=== PATIENT | female | born 1970 ===

== ENCOUNTER 2022-04-17 16:48 | Inpatient (IN) | payer OTHER ==
[~2022-04-17] VITALS: Ht 152.4 cm; Wt 93.0 kg
[2022-04-17] MEDS ORDERED: LISI10TA29 PO (17:20)
[2022-04-17] MEDS ORDERED: ASPI81TA31 PO (17:20)
[2022-04-17] MEDS ORDERED: IV NORMAL SALINE 1000 ML BAG IV ONE ×2 (17:45→19:00)
[2022-04-17] MEDS ORDERED: ACETAMINOPHEN ES 500 MG TABLET PO ONE (17:45)
[2022-04-17] MEDS ORDERED: ACETAMINOPHEN ES 500 MG TABLET ONE (17:52)
[2022-04-17 18:11] LABS: MEAN CORPUSCULAR HEMOGLOBIN 30.1 uug (24.7-32.8); MEAN CORPUSCULAR VOLUME 89.3 fL (75.5-95.3); PLATELET COUNT (AUTO) 278 K/uL (179-408)
--- NOTE | 2022-04-17 18:13 | NUR ---
PT IS IN ROOM #2A. DR LEAVITT EVALUATED THE PT.
[2022-04-17 18:27] LABS: ALANINE AMINOTRANSFERASE 19 U/L (14-59); ALKALINE PHOSPHATASE 56 U/L (50-136); ASPARTATE AMINOTRANSFERASE 30 U/L (15-37); BILIRUBIN,DIRECT 0.2 mg/dL (0.0-0.2); BILIRUBIN,TOTAL 0.5 mg/dL (0.2-1.0); CARBON DIOXIDE 28 mmol/L (21-32); CHLORIDE 95 mmol/L (98-107); CREATININE 0.8 mg/dL (0.6-1.3); GLUCOSE 117 mg/dL (74-106); POTASSIUM 4.4 mmol/L (3.5-5.1); TOTAL PROTEIN, SERUM 5.8 g/dL (6.4-8.2); UREA NITROGEN, BLOOD 12 mg/dL (7-18)
[2022-04-17] MEDS ORDERED: CEFTRIAXONE 1 G in IV DEXTROSE 5% 50 ML IV ONE (19:00)
[2022-04-17] MEDS ORDERED: VANCOMYCIN IV 1,000 MG in IV DEXTROSE 5% 250 ML IV ONE (19:00)
--- NOTE | 2022-04-17 19:04 | NUR ---
REPORT WAS GIVEN TO PYROMETER TEMPERATURE REGULATOREDITORIAL DIRECTOR.
[2022-04-17 19:05] LABS: THYROID STIMULATING HORMONE 1.906 mIU/mL (0.358-3.740)
[2022-04-17] MEDS ORDERED: KETOROLAC TROMETHAMINE 15 MG INJ IVP ONE (19:30)
[2022-04-17] MEDS ORDERED: IV NORMAL SALINE 250 ML IV ONE (20:46)
[2022-04-17] MEDS ORDERED: SWABABLE VALVE TRANSFER SET EA MC ONE (20:46)
[2022-04-17] MEDS ORDERED: IOHEXOL 300MG/ML 100 ML INFUS..BTL ONE (20:46)
[2022-04-18] MEDS ORDERED: ACETAMINOPHEN 325 MG TABLET PO PRN (00:15)
[2022-04-18] MEDS ORDERED: CEFTRIAXONE /D5W 50ML IVPB **ER PYXIS IV ONE (00:35)
[2022-04-18] MEDS ORDERED: KETOROLAC TROMETHAMINE 15 MG INJ ONE (00:35)
[2022-04-18] MEDS ORDERED: VANCOMYCIN IV 200 ML ONE (00:35)
[2022-04-18] MEDS ORDERED: methylPREDNISolone SOD SUCC 125 MG/2 ML VIAL IV ONE (01:30)
[2022-04-18] MEDS ORDERED: diphenhydrAMINE 50 MG/1 ML VIAL IV ONE (01:30)
[2022-04-18] MEDS ORDERED: diphenhydrAMINE 50 MG/1 ML VIAL ONE (01:53)
[2022-04-18] MEDS ORDERED: methylPREDNISolone SOD SUCC 125 MG/2 ML VIAL ONE (01:54)
[2022-04-18 03:40] VITALS: BP 110/48
[2022-04-18] MEDS ORDERED: levoFLOXacin 500 MG/D5W 500 MG in PREMIXED 1 EACH IV SCH (04:00)
[2022-04-18] MEDS ORDERED: IV 1/2NS 1000 ML 1,000 ML IV ONE (04:15)
[2022-04-18] MEDS ORDERED: levoFLOXacin 500 MG/D5W 100 ML ONE (04:51)
[2022-04-18] MEDS ORDERED: METRONIDAZOLE 500 MG/NS 100ML 100 ML IV ONE (04:52)
--- NOTE | 2022-04-18 05:29 | NUR ---
RECEIVED PATIENT ALERT AND ORIENTED X4 BUT GEORGIAN SPEAKING ACCOMPANIED BY DAUGHTER ASSISTED NURSE WITH HER REPORT. NO SIGNS OF RESPIRATORY DISTRESS NOTED. PT ASSESSED HAS RED BUMPS IN THE PERINEUM AREA UPPER AND LOWER BACK, ANTERIOR THIGH BUT NOT PT LEGS PT SHOWS NO SIGNS OF EDEMA. PT STATES" iT FEELS LIKE i AM BURNING ALL OVER BUT DENIES PAIN. PT WHOLE BUTTOCK AREA HAS RED BUMPS ALONG WITH BUTTOCKS AREA. PT HAS IV FLUIDS OF 1/2NS INFUSING AT 70 ML AND HOUR PATIENT TOLERATING WELL WITH 20 GAUGE LT AC. PT HAS ANTIBIOTIC OF LEVAQUIN 500MG ORDERED ALONG WITH FLAGYL 50MG VIA IVPB. PT IS ABLE TO TURN IN BED WILL CONTINUE TO MONITOR FOR SAFETY AND FALL. WILL ENDORSE TO AM NURSE.
[2022-04-18 05:59] VITALS: BP 110/44
[2022-04-18] MEDS: METRONIDAZOLE 500 MG/NS 100ML 500 MG in PREMIXED 1 EACH IV SCH ×3 (06:07→21:22)
[2022-04-18 07:19] LABS: HEMATOCRIT 32.5 % (31.2-41.9); MEAN CORPUSCULAR HEMOGLOBIN 30.3 uug (24.7-32.8); MEAN CORPUSCULAR VOLUME 89.6 fL (75.5-95.3); PLATELET COUNT (AUTO) 260 K/uL (179-408)
[2022-04-18 07:35] LABS: BILIRUBIN,TOTAL 0.4 mg/dL (0.2-1.0); CREATININE 0.7 mg/dL (0.6-1.3); PHOSPHOROUS 4.9 mg/dL (2.5-4.9); POTASSIUM 4.3 mmol/L (3.5-5.1); TOTAL PROTEIN, SERUM 5.6 g/dL (6.4-8.2)
[2022-04-18] MEDS: PANTOPRAZOLE SODIUM 40 MG TABLET.DR PO SCH (08:27)
[2022-04-18 10:20] LABS: *BILIRUBIN,URIN NEGATIVE (NEGATIVE); *BLOOD, URINE NEGATIVE (NEGATIVE); *CLARITY,URINE CLEAR (CLEAR); *COLOR,URINE YELLOW (YELLOW); *KETONES,URINE NEGATIVE (NEGATIVE); *UROBILINOGEN,URINE 0.2 E.U./dl (NORMAL); LEUKOCYTE ESTERASE ,URINE NEGATIVE (NEGATIVE); NITRITE, URINE NEGATIVE (NEGATIVE); UGLUCOSE TRACE (NEGATIVE)
[2022-04-18 10:22] LABS: *URINE HCG, QUAL NEGATIVE (NEGATIVE)
[2022-04-18 11:05] LABS: BACTERIA,URINE FEW /HPF (NONE SEEN); RBC,URINE 0-3 /HPF (0-3); SQUAMOUS EPITHELIAL CELL,UR FEW /HPF (NONE SEEN); WBC,URINE NONE SEEN /HPF (0-3)
[2022-04-18 11:11] VITALS: BP 115/47
[2022-04-18 15:27] VITALS: BP 130/54
--- NOTE | 2022-04-18 16:29 | NUR ---
Pt. has been stable through out the shift. Able to make the need known. No compliance of pain or discomfort noted. Alert and oriented x4. Able to ambulate. Urine was collected and was sent to the lab. Will keep monitoring the patient.
--- NOTE | 2022-04-18 19:30 | NUR ---
Patient was resting comfortably in bed with family by bedside. Concerns were communicated at this time and verbally understood. AAOx4, Syriac speaking. Is in no distress or c/o pain at this time. Is on RA. Left IV site is intact and patent, IVF running adequately. Safety and comfort measures enforced.
[2022-04-18 20:00] VITALS: BP 110/55
[2022-04-19] MEDS: MORPHINE SULFATE 2 MG/1 ML DISP.SYRIN IVP PRN ×2 (03:42→17:13)
[2022-04-19 04:00] VITALS: BP 103/55
[2022-04-19] MEDS: METRONIDAZOLE 500 MG/NS 100ML 500 MG in PREMIXED 1 EACH IV SCH ×3 (05:10→21:41)
[2022-04-19] MEDS: levoFLOXacin 500 MG/D5W 500 MG in PREMIXED 1 EACH IV SCH (06:14)
[2022-04-19 07:10] LABS: CREATININE 0.8 mg/dL (0.6-1.3); PHOSPHOROUS 3.9 mg/dL (2.5-4.9); POTASSIUM 3.8 mmol/L (3.5-5.1); URIC ACID 3.8 mg/dL (2.6-6.0)
[2022-04-19 07:17] LABS: THYROID STIMULATING HORMONE 2.042 mIU/mL (0.358-3.740)
[2022-04-19 09:08] LABS: IRON, SERUM 74 ug/dL (50-175)
[2022-04-19] MEDS: PANTOPRAZOLE SODIUM 40 MG TABLET.DR PO SCH (09:22)
[2022-04-19 11:03] VITALS: BP 105/46
[2022-04-19 15:18] VITALS: BP 97/46
--- NOTE | 2022-04-19 18:20 | NUR ---
Concerns were communicated with patient and family members. They are aware of situation and are less anxious about situation. Want to give them updates d/t language barrier from patient. No distress noted at this time. Pain was treated and goal was met. Safety and comfort measures maintained.
[2022-04-19 20:00] VITALS: BP 103/49
--- NOTE | 2022-04-20 01:41 | NUR ---
message left with exchange to call me back,about pt concern
--- NOTE | 2022-04-20 01:55 | NUR ---
INFORMED OF PT C/O OF SOB ,ORDERS OBTAINED
[2022-04-20] MEDS ORDERED: ALBUTEROL SULFATE 2.5 MG/3 ML NEBU NEB PRN (02:00)
[2022-04-20] MEDS ORDERED: IPRATROPIUM BROMIDE 0.5 MG/2.5 ML NEBU NEB PRN (02:00)
[2022-04-20 04:00] VITALS: BP 125/54
[2022-04-20] MEDS: METRONIDAZOLE 500 MG/NS 100ML 500 MG in PREMIXED 1 EACH IV SCH (05:20)
[2022-04-20] MEDS: levoFLOXacin 500 MG/D5W 500 MG in PREMIXED 1 EACH IV SCH (05:20)
--- NOTE | 2022-04-20 07:30 | NUR ---
REPORT GIVEN TO ALFA HURST
--- NOTE | 2022-04-20 07:30 | NUR ---
NIGHT REPORT: 1) SAFETY: (a)Patient has iv access LAC 20G - saline locked, however, on IV ATB. (b) No sign of infection, inflammation observed, site is patent, intact and flushing 2) BREATHING: No signs of SOB - ON RA - Saturating in the high 90s. 3) MOBILITY: Patient is fully mobile - no safety concerns observed or expressed. 4) SKIN:Intact, no rash or discoloration observed. 5) PAIN: No c/o of pain or non verbal sign of pain. 6) EATING & DRINKING: On clear fluids PLAN: (i) Continue to be on clear fluids. (ii) Await colonoscopy orders (iii) treat patient accordingly (iv) Patient want nebilizer instead of inhalers
[2022-04-20 08:00] VITALS: BP 110/68
[2022-04-20] MEDS ORDERED: IOHEXOL 300MG/ML 100 ML INFUS..BTL ONE (08:00)
[2022-04-20] MEDS ORDERED: SWABABLE VALVE TRANSFER SET EA MC ONE (08:00)
[2022-04-20] MEDS ORDERED: IV NORMAL SALINE 250 ML IV ONE (08:00)
[2022-04-20] MEDS: PROTEIN SUPPLEMENT (PROSTAT) 30 ML LIQUID PO SCH (08:00)
--- NOTE | 2022-04-20 08:00 | NUR ---
CT CHEST WITH CONTRAST: 1) Patient has left the unit for CT chest with contrast. 2) Check list completed - has had contrast before with no allergies 3) Belgian speaking - needed an machinist general.
--- NOTE | 2022-04-20 08:30 | NUR ---
FLACO cortez this morning - continue on clear fluids and await colonoscopy orders.
--- NOTE | 2022-04-20 08:40 | NUR ---
CT CHEST W/CONTRAST UPDATE: 1) Patient returned to the unit, clinically stable on return 2) MD on the unit and is aware of above.
[2022-04-20] MEDS: PANTOPRAZOLE SODIUM 40 MG TABLET.DR PO SCH (09:26)
[2022-04-20] MEDS: ONDANSETRON 4 MG/2 ML VIAL IV PRN (09:26)
--- NOTE | 2022-04-20 09:29 | NUR ---
AM MED: 1) C/o of nausea - Zofran administered iv as prescribed - awaiting effect 2) Returned Tylenol and Prostate due to above. 3) Will continue to treat and assess accordingly
[2022-04-20] MEDS ORDERED: ALBUTEROL SULFATE 8 GM HFA.AER.AD IH PRN (10:30)
[2022-04-20] MEDS: IPRATROPIUM BROMIDE 0.5 MG/2.5 ML NEBU NEB SCH ×5 (11:30→23:30)
[2022-04-20 11:46] VITALS: BP 112/56
[2022-04-20] MEDS ORDERED: ALBUTEROL SULFATE 1.25 MG/3 ML NEBU NEB PRN (13:00)
[2022-04-20] MEDS: METRONIDAZOLE 500 MG TABLET PO SCH ×2 (14:00→21:17)
--- NOTE | 2022-04-20 14:05 | NUR ---
Patient will be picked up for colonoscopy at 9:30am for 10 am, patient informed.
[2022-04-20 16:04] VITALS: BP 128/60
[2022-04-20] MEDS ORDERED: HYDROMORPHONE 1 MG/1 ML DISP.SYRIN IV PRN (16:30)
--- NOTE | 2022-04-20 17:30 | NUR ---
BOWEL PREP: 1) Patient started on Golyte 1 gallon at 6pm 2) To have 1 glass every 30 minutes until 6am. 3) NPO at midnight except for meds. 4) Patient on clear liquids until MN. 5) To have Sorbitol at 6am. 6) Consent signed - daughter interpreted.
[2022-04-20] MEDS: ACETAMINOPHEN 325 MG TABLET PO PRN (17:46)
[2022-04-20] MEDS ORDERED: GOLYTELY 4000 ML BOTTLE PO ONE ×2 (18:00)
--- NOTE | 2022-04-20 18:41 | NUR ---
1) No further complaints from patient for the rest of the day. 2) Will endorse care to night staff accordingly, who will continue care for the rest of the day.
[2022-04-20 20:00] VITALS: BP 126/63
[2022-04-21] MEDS: IPRATROPIUM BROMIDE 0.5 MG/2.5 ML NEBU NEB SCH ×6 (03:07→23:00)
[2022-04-21] MEDS ORDERED: SORBITOL 70% SOLUTION 30 ML UDC PO ONE ×3 (03:45→06:00)
[2022-04-21] MEDS: ACETAMINOPHEN 325 MG TABLET PO PRN ×2 (03:47→20:50)
[2022-04-21] MEDS: levoFLOXacin 500 MG/D5W 500 MG in PREMIXED 1 EACH IV SCH (05:17)
[2022-04-21] MEDS: METRONIDAZOLE 500 MG TABLET PO SCH ×3 (05:18→22:14)
[2022-04-21 06:30] LABS: HEMATOCRIT 32.3 % (31.2-41.9); MEAN CORPUSCULAR HEMOGLOBIN 30.3 uug (24.7-32.8); MEAN CORPUSCULAR VOLUME 90.1 fL (75.5-95.3); PLATELET COUNT (AUTO) 309 K/uL (179-408)
[2022-04-21 06:57] LABS: CREATININE 0.8 mg/dL (0.6-1.3); MAGNESIUM 1.8 mg/dL (1.8-2.4); PHOSPHOROUS 4.3 mg/dL (2.5-4.9); POTASSIUM 3.5 mmol/L (3.5-5.1)
[2022-04-21] MEDS: PROTEIN SUPPLEMENT (PROSTAT) 30 ML LIQUID PO SCH (08:00)
[2022-04-21] MEDS: PANTOPRAZOLE SODIUM 40 MG TABLET.DR PO SCH (08:04)
[2022-04-21] MEDS ORDERED: IOHEXOL 300MG/ML 100 ML INFUS..BTL ONE (08:35)
[2022-04-21] MEDS ORDERED: SWABABLE VALVE TRANSFER SET EA MC ONE (08:37)
[2022-04-21 10:13] LABS: *RHEUMATOID FACTOR SCREEN NEGATIVE (NEGATIVE)
[2022-04-21] MEDS ORDERED: LIDOCAINE-MPF 2% 5 ML VIAL IJ ONE (11:09)
[2022-04-21] MEDS ORDERED: PROPOFOL 200 MG/20 ML BOTTLE IV ONE (11:09)
[2022-04-21] MEDS ORDERED: FENTANYL CITRATE 100 MCG/2 ML AMPUL ONE (11:26)
[2022-04-21 12:54] VITALS: BP 106/51
[2022-04-21 13:06] LABS: *ANTI-SCLERODERMA-70 AB <0.2 AI (0.0-0.9); *SJOGREN'S ANTI-SS-A <0.2 AI (0.0-0.9); *SJOGREN'S ANTI-SS-B <0.2 AI (0.0-0.9); *SMITH ANTIBODIES <0.2 AI (0.0-0.9); ANTI-DNA(DS) AB, QN 5 IU/mL (0-9)
[2022-04-21 15:06] VITALS: BP 117/42
[2022-04-21 20:00] VITALS: BP 121/56
--- NOTE | 2022-04-21 20:00 | NUR ---
received pt A/A/OX4 ENTERTAINING WITH FAMILY MEMBERS. DENIES PAIN OR DISCOMFORT. V/S=STABLE. PT AMBULATES TO BR WITHOUT ANY PROBLEME. AT 2230 ==C/O ABOUT HEADAGHE , GIVENTYLENOL WITH EFFECT. 2340 ==SLEEPING AT THIS TIME .NO S/SX OF DISTRESS NOTICED.
[2022-04-22] MEDS: IPRATROPIUM BROMIDE 0.5 MG/2.5 ML NEBU NEB SCH ×6 (03:14→23:30)
[2022-04-22 04:00] VITALS: BP 129/62
[2022-04-22] MEDS: ACETAMINOPHEN 325 MG TABLET PO PRN (05:38)
[2022-04-22] MEDS: METRONIDAZOLE 500 MG TABLET PO SCH ×3 (06:28→21:51)
[2022-04-22] MEDS: levoFLOXacin 500 MG/D5W 500 MG in PREMIXED 1 EACH IV SCH (06:39)
[2022-04-22 07:07] LABS: *IMMUNOGLOBULIN G, SERUM 1299 mg/dL (586-1602); IMMUNOGLOBULIN M, SERUM 115 mg/dL (26-217)
[2022-04-22] MEDS: PROTEIN SUPPLEMENT (PROSTAT) 30 ML LIQUID PO SCH (08:20)
[2022-04-22] MEDS: PANTOPRAZOLE SODIUM 40 MG TABLET.DR PO SCH (08:51)
[2022-04-22 11:08] VITALS: BP 133/64
[2022-04-22] MEDS: FUROSEMIDE 40 MG TABLET PO SCH (12:46)
--- NOTE | 2022-04-22 13:31 | NUR ---
Lasix 40mg administered as per doctor's order. Doctor is aware of potassium level 3.5.
[2022-04-22] MEDS ORDERED: LISI-782 PO (13:34)
[2022-04-22] MEDS ORDERED: MONT10TA33 PO (13:34)
[2022-04-22] MEDS ORDERED: CARV6.252 PO (13:34)
[2022-04-22] MEDS ORDERED: ATOR40TA PO (13:35)
[2022-04-22] MEDS: ASPIRIN 81 MG TAB.CHEW PO SCH (14:10)
[2022-04-22 15:36] VITALS: BP 117/53
[2022-04-22] MEDS: CARVEDILOL 6.25 MG TABLET PO SCH (17:36)
[2022-04-22] MEDS: ONDANSETRON 4 MG/2 ML VIAL IV PRN (17:40)
[2022-04-22] MEDS: ATORVASTATIN 40 MG TABLET PO SCH (21:00)
[2022-04-22] MEDS: MONTELUKAST SODIUM 10 MG TABLET PO SCH (21:00)
[2022-04-23] MEDS: IPRATROPIUM BROMIDE 0.5 MG/2.5 ML NEBU NEB SCH ×6 (03:30→23:18)
[2022-04-23] MEDS: levoFLOXacin 500 MG TABLET PO SCH (06:33)
[2022-04-23] MEDS: METRONIDAZOLE 500 MG TABLET PO SCH ×3 (06:34→21:26)
[2022-04-23 08:03] LABS: IRON, SERUM 34 ug/dL (50-175)
[2022-04-23] MEDS: PROTEIN SUPPLEMENT (PROSTAT) 30 ML LIQUID PO SCH (09:06)
[2022-04-23] MEDS: FUROSEMIDE 40 MG TABLET PO SCH (09:06)
[2022-04-23] MEDS: PANTOPRAZOLE SODIUM 40 MG TABLET.DR PO SCH (09:06)
[2022-04-23] MEDS: ASPIRIN 81 MG TAB.CHEW PO SCH (09:06)
[2022-04-23] MEDS: LISINOPRIL 5 MG TABLET PO SCH (09:07)
[2022-04-23] MEDS: CARVEDILOL 6.25 MG TABLET PO SCH ×2 (09:08→17:29)
[2022-04-23 09:15] LABS: FERRITIN 248 ng/mL (8-252)
--- NOTE | 2022-04-23 11:00 | NUR ---
patient skin was inspected, noted with red color irregular shape rash spreaded over the body, however no fluid filled blisters noted.
[2022-04-23 11:47] VITALS: BP 115/61
[2022-04-23] MEDS: MORPHINE SULFATE 2 MG/1 ML DISP.SYRIN IVP PRN (15:10)
[2022-04-23] MEDS: ACETAMINOPHEN 325 MG TABLET PO PRN ×2 (15:21→23:55)
[2022-04-23 16:00] VITALS: BP 124/53
--- NOTE | 2022-04-23 19:20 | NUR ---
no events noted during shift Addendum: 04/24/22 at 1240 by MICAH ALANIS RN [id number] PATIENT IN BED, AWAKE, ALERT/OX4, PERSIAN SPEAKING WITH SOME ITALIAN, PATIENT VERBALIZES NEEDS AND FOLLOWS DIRECTIONS. ON R/A AND WELL YSABEL. NO PHYSICAL OR RESPIRATORY DISTRESS NOTED. HOB ELEVATED. LEFT HAND H/L g 20" FLUSHING WELL. REPOSITIONED PATIENT TO [id number] COMFORT AND FACILITATE PRESSURE RELIEF. ENCOURAGED ORAL FLUIDS ENCOURAGED AND TAKEN WELL. NO SWALLOWING PROBLEMS OBSERVED, NO S/S OF CHOCKING/COUGHING NOTED. CALL LIGHT WITHIN REACH AND ENCOURAGED TO PLEASE USE IT EVERY TIME HELP IS NEEDED WITH GOOD UNDERSTANDING..
[2022-04-23] MEDS: ATORVASTATIN 40 MG TABLET PO SCH (21:26)
[2022-04-23] MEDS: FERROUS SULFATE 325 MG TABEC PO SCH (21:26)
[2022-04-23] MEDS: MONTELUKAST SODIUM 10 MG TABLET PO SCH (21:26)
[2022-04-24] MEDS: IPRATROPIUM BROMIDE 0.5 MG/2.5 ML NEBU NEB SCH ×6 (03:30→23:30)
[2022-04-24] MEDS: METRONIDAZOLE 500 MG TABLET PO SCH ×3 (06:08→22:06)
[2022-04-24] MEDS: levoFLOXacin 500 MG TABLET PO SCH (06:08)
[2022-04-24 07:07] LABS: A/G RATIO 0.9 (0.7-1.7); ALBUMIN 2.8 g/dL (2.9-4.4); ALPHA-1-GLOBULIN 0.3 g/dL (0.0-0.4); ALPHA-2-GLOBULIN 0.7 g/dL (0.4-1.0); BETA GLOBULIN 0.8 g/dL (0.7-1.3); GAMMA GLOBULIN 1.3 g/dL (0.4-1.8); GLOBULIN, TOTAL 3.1 g/dL (2.2-3.9); M-SPIKE Not Observed g/dL (Not Observed)
[2022-04-24] MEDS: PROTEIN SUPPLEMENT (PROSTAT) 30 ML LIQUID PO SCH (08:38)
[2022-04-24] MEDS: PANTOPRAZOLE SODIUM 40 MG TABLET.DR PO SCH (08:39)
[2022-04-24] MEDS: LISINOPRIL 5 MG TABLET PO SCH ×2 (08:39→08:41)
[2022-04-24] MEDS: CARVEDILOL 6.25 MG TABLET PO SCH (08:40)
[2022-04-24] MEDS: ASPIRIN 81 MG TAB.CHEW PO SCH (08:40)
[2022-04-24] MEDS: FUROSEMIDE 40 MG TABLET PO SCH (08:40)
[2022-04-24] MEDS: FERROUS SULFATE 325 MG TABEC PO SCH ×2 (08:40→21:25)
[2022-04-24 11:16] LABS: *OCCULT BLOOD STOOL NEGATIVE (NEGATIVE)
[2022-04-24 11:32] VITALS: BP 105/56
[2022-04-24] MEDS: ACETAMINOPHEN 325 MG TABLET PO PRN ×2 (15:09→22:01)
[2022-04-24 15:42] VITALS: BP 122/41
[2022-04-24 20:22] VITALS: BP 97/52
[2022-04-24] MEDS: ATORVASTATIN 40 MG TABLET PO SCH (21:14)
[2022-04-24] MEDS: MONTELUKAST SODIUM 10 MG TABLET PO SCH (21:25)
[2022-04-25] MEDS: IPRATROPIUM BROMIDE 0.5 MG/2.5 ML NEBU NEB SCH ×6 (03:10→23:06)
[2022-04-25 04:00] VITALS: BP 99/43
[2022-04-25] MEDS: METRONIDAZOLE 500 MG TABLET PO SCH ×3 (06:06→21:24)
[2022-04-25] MEDS: levoFLOXacin 500 MG TABLET PO SCH (06:07)
[2022-04-25] MEDS: ONDANSETRON 4 MG/2 ML VIAL IV PRN (06:24)
[2022-04-25 08:00] VITALS: BP 97/44
[2022-04-25] MEDS: PROTEIN SUPPLEMENT (PROSTAT) 30 ML LIQUID PO SCH (08:00)
[2022-04-25] MEDS: LISINOPRIL 5 MG TABLET PO SCH (09:00)
[2022-04-25] MEDS: FUROSEMIDE 40 MG TABLET PO SCH (09:00)
[2022-04-25] MEDS: CARVEDILOL 6.25 MG TABLET PO SCH ×3 (09:00→21:24)
[2022-04-25] MEDS: FERROUS SULFATE 325 MG TABEC PO SCH ×2 (10:04→21:23)
[2022-04-25] MEDS: ASPIRIN 81 MG TAB.CHEW PO SCH (10:07)
[2022-04-25] MEDS: PANTOPRAZOLE SODIUM 40 MG TABLET.DR PO SCH (10:07)
[2022-04-25 11:22] VITALS: BP 110/43
[2022-04-25 16:00] VITALS: BP 116/47
[2022-04-25] MEDS ORDERED: LIDOCAINE 1%-EPI 1:100,000 20 ML VIAL IJ ONE (16:00)
[2022-04-25 20:00] VITALS: BP 135/52
[2022-04-25] MEDS: MONTELUKAST SODIUM 10 MG TABLET PO SCH (21:24)
[2022-04-25] MEDS: ATORVASTATIN 40 MG TABLET PO SCH (21:24)
[2022-04-25] MEDS: ACETAMINOPHEN 325 MG TABLET PO PRN (21:24)
[2022-04-26] MEDS: IPRATROPIUM BROMIDE 0.5 MG/2.5 ML NEBU NEB SCH ×6 (03:28→23:30)
[2022-04-26] MEDS: MORPHINE SULFATE 2 MG/1 ML DISP.SYRIN IVP PRN (04:29)
[2022-04-26] MEDS: ACETAMINOPHEN 325 MG TABLET PO PRN ×3 (04:40→19:37)
[2022-04-26] MEDS: levoFLOXacin 500 MG TABLET PO SCH (06:12)
[2022-04-26] MEDS: METRONIDAZOLE 500 MG TABLET PO SCH ×2 (06:12→13:46)
[2022-04-26 07:10] LABS: HEMATOCRIT 31.9 % (31.2-41.9); MEAN CORPUSCULAR HEMOGLOBIN 30.1 uug (24.7-32.8); MEAN CORPUSCULAR VOLUME 90.6 fL (75.5-95.3); PLATELET COUNT (AUTO) 288 K/uL (179-408)
[2022-04-26 07:39] LABS: BILIRUBIN,TOTAL 0.4 mg/dL (0.2-1.0); CREATININE 0.7 mg/dL (0.6-1.3); MAGNESIUM 1.9 mg/dL (1.8-2.4); PHOSPHOROUS 4.2 mg/dL (2.5-4.9); POTASSIUM 3.6 mmol/L (3.5-5.1); TOTAL PROTEIN, SERUM 5.7 g/dL (6.4-8.2)
[2022-04-26 08:00] VITALS: BP 108/52
[2022-04-26] MEDS: LISINOPRIL 5 MG TABLET PO SCH (09:00)
[2022-04-26] MEDS: ASPIRIN 81 MG TAB.CHEW PO SCH (09:21)
[2022-04-26] MEDS: FERROUS SULFATE 325 MG TABEC PO SCH ×2 (09:21→20:08)
[2022-04-26] MEDS: FUROSEMIDE 40 MG TABLET PO SCH (09:22)
[2022-04-26] MEDS: PANTOPRAZOLE SODIUM 40 MG TABLET.DR PO SCH (09:22)
[2022-04-26] MEDS: PROTEIN SUPPLEMENT (PROSTAT) 30 ML LIQUID PO SCH (09:24)
[2022-04-26 12:00] VITALS: BP 118/69
[2022-04-26] MEDS: ONDANSETRON 4 MG/2 ML VIAL IV PRN (13:47)
[2022-04-26] MEDS: CARVEDILOL 6.25 MG TABLET PO SCH (17:49)
--- NOTE | 2022-04-26 19:30 | NUR ---
Received patient lying in bed. Family at bedside. Patient AAOX4, mainly Irish speaking. In no apparent distress. Denies any SOB. Complain of generalized pain. Will provide Tylenol 650mg PO per order. Other needs assessed and attended to. Safety measure initiated and call light within reached.
--- NOTE | 2022-04-26 19:48 | NUR ---
RECEIVED REPORT FROM CAPRI ARCOS RN. PATIENT IS ALERT AND ORIENTED X4 AND SPEAKS PRIMARILY [place]. PATIENT TOLERATES PO AND DIET WELL. PATIENT HAD COMPLAINED OF NAUSEA. RN ADMIN MEDICATION ORDERED. PATIENT HAD TWO BOWEL MOVEMENT AND VOIDS ADEQUATELY. PATIENT AMBULATORY, AND ABLE TO PROVIDE CARE FOR HERSELF. VITAL SIGNS STABLE. PATIENT COMPLAINED OF PAIN, HOWEVER TYLENOL MANAGED HER PAIN. HOURLY ROUNDING COMPLETED. NO ACUTE DISTRESS NOTED. ALL NEEDS MET AT THIS TIME. RN MADE CLIENT AWARE OF NPO STATUS AT MIDNIGHT FOR HER PROCEDURE IN THE MORNING TOMORROW. ENDORSED CARE TO ALFA FLETCHER, FOR CONTINUATION OF CARE.
[2022-04-26 20:00] VITALS: BP 119/52
[2022-04-26 20:06] LABS: COCCIDIOIDES CF SERUM Negative (Neg:<1:2)
[2022-04-26] MEDS: MONTELUKAST SODIUM 10 MG TABLET PO SCH (20:08)
[2022-04-26] MEDS: ATORVASTATIN 40 MG TABLET PO SCH (20:08)
[2022-04-27] MEDS: IPRATROPIUM BROMIDE 0.5 MG/2.5 ML NEBU NEB SCH ×6 (03:28→23:21)
[2022-04-27 04:49] VITALS: BP 111/47
--- NOTE | 2022-04-27 05:23 | NUR ---
Slept well during the night. Afebrile. No further complain of pain. Denies any SOB. Needs attended to and met. Safety measure maintained and call light within reached.
--- NOTE | 2022-04-27 07:30 | NUR ---
Awake, alert, oriented x 4, Syriac speaking. NPO maintained
[2022-04-27] MEDS: PROTEIN SUPPLEMENT (PROSTAT) 30 ML LIQUID PO SCH (08:00)
[2022-04-27] MEDS: LISINOPRIL 5 MG TABLET PO SCH (09:00)
[2022-04-27] MEDS: CARVEDILOL 6.25 MG TABLET PO SCH ×2 (09:00→16:59)
[2022-04-27] MEDS: ASPIRIN 81 MG TAB.CHEW PO SCH (09:35)
[2022-04-27] MEDS: FERROUS SULFATE 325 MG TABEC PO SCH ×2 (09:36→20:23)
[2022-04-27] MEDS: FUROSEMIDE 40 MG TABLET PO SCH (09:36)
[2022-04-27] MEDS: PANTOPRAZOLE SODIUM 40 MG TABLET.DR PO SCH (09:36)
[2022-04-27 11:08] VITALS: BP 101/45
--- NOTE | 2022-04-27 11:30 | NUR ---
CT needle biopsy cancelled for today. Patient and family informed. Diet resumed.
--- NOTE | 2022-04-27 15:00 | NUR ---
Reports of itchiness of rash on the back, lotion applied with relief.
[2022-04-27 15:41] VITALS: BP_SYST 110; BP_DIAS 54; BP_DIAS 58
[2022-04-27] MEDS: ONDANSETRON 4 MG/2 ML VIAL IV PRN (16:59)
--- NOTE | 2022-04-27 17:35 | NUR ---
Nauseated, Zofran given with relief
--- NOTE | 2022-04-27 18:35 | NUR ---
Resting, family at bedside
[2022-04-27 20:00] VITALS: BP 106/45
[2022-04-27] MEDS: diphenhydrAMINE 1% CREAM 28.3 GM TUBE TP PRN (20:23)
[2022-04-27] MEDS: MONTELUKAST SODIUM 10 MG TABLET PO SCH (20:23)
[2022-04-27] MEDS: ATORVASTATIN 40 MG TABLET PO SCH (20:23)
--- NOTE | 2022-04-27 20:33 | NUR ---
Received patient sitting on a chair inside her room. AAOX4. In no apparent distress. Denies any pain or SOB at this time. IV site on left hand intact and patent. Needs assessed and attended to. Safety measure initiated and call light within reached
[2022-04-28] MEDS: IPRATROPIUM BROMIDE 0.5 MG/2.5 ML NEBU NEB SCH ×6 (03:30→23:30)
[2022-04-28 05:15] VITALS: BP 106/43
--- NOTE | 2022-04-28 05:47 | NUR ---
Slept well during the night. No complain of pain or SOB. IV site on left hand remains intact and patent. NPO status. Needs attended to and met. Safety measure maintained and call light within reached.
[2022-04-28 07:28] LABS: HEMATOCRIT 30.7 % (31.2-41.9); MEAN CORPUSCULAR HEMOGLOBIN 30.5 uug (24.7-32.8); MEAN CORPUSCULAR VOLUME 90.3 fL (75.5-95.3); PLATELET COUNT (AUTO) 305 K/uL (179-408)
[2022-04-28 07:58] LABS: CREATININE 0.7 mg/dL (0.6-1.3); PHOSPHOROUS 4.6 mg/dL (2.5-4.9); POTASSIUM 3.6 mmol/L (3.5-5.1)
[2022-04-28] MEDS: ASPIRIN 81 MG TAB.CHEW PO SCH ×2 (08:35→09:54)
[2022-04-28] MEDS: FUROSEMIDE 40 MG TABLET PO SCH (08:36)
[2022-04-28] MEDS: FERROUS SULFATE 325 MG TABEC PO SCH ×2 (08:36→20:34)
[2022-04-28] MEDS: PANTOPRAZOLE SODIUM 40 MG TABLET.DR PO SCH (08:36)
[2022-04-28] MEDS: PROTEIN SUPPLEMENT (PROSTAT) 30 ML LIQUID PO SCH (08:41)
[2022-04-28] MEDS: CARVEDILOL 6.25 MG TABLET PO SCH ×2 (09:00→16:34)
[2022-04-28] MEDS: LISINOPRIL 5 MG TABLET PO SCH (09:00)
[2022-04-28 11:14] VITALS: BP 118/44
[2022-04-28] MEDS ORDERED: NALOXONE 2 MG/2 ML SYRINGE IV PRN (11:15)
[2022-04-28] MEDS ORDERED: FLUMAZENIL 0.5 MG/5 ML VIAL IVP PRN (11:15)
[2022-04-28] MEDS ORDERED: FENTANYL CITRATE 250 MCG/5 ML AMPUL IV PRN (11:15)
[2022-04-28] MEDS ORDERED: MIDAZOLAM HCL 2 MG/2 ML VIAL IV PRN (11:15)
--- NOTE | 2022-04-28 16:18 | NUR ---
Pt. went through Computer Tomography needle biopsy of right lower lobe nodule. Noted to be stable when she was back to the unit. Biopsy site covered by dressing and no bleeding noted from the site. No c/o dizziness, headache and nausea or vomiting noted. Family noted at pt. bedside. Compliance with the care given. Will keep monitoring the patient.
[2022-04-28 16:21] VITALS: BP 100/52
[2022-04-28] MEDS: ACETAMINOPHEN 325 MG TABLET PO PRN (18:40)
--- NOTE | 2022-04-28 19:30 | NUR ---
Received patient lying in bed. AAOx4. Family at beside. IV site on left hand intact and patent. Needs assessed and attended to. Safety measure initiated and call light within reach.
[2022-04-28 20:00] VITALS: BP 110/62
[2022-04-28] MEDS: MONTELUKAST SODIUM 10 MG TABLET PO SCH (20:34)
[2022-04-28] MEDS: ATORVASTATIN 40 MG TABLET PO SCH (20:34)
[2022-04-28] MEDS: diphenhydrAMINE 1% CREAM 28.3 GM TUBE TP PRN (20:58)
[2022-04-29] MEDS: IPRATROPIUM BROMIDE 0.5 MG/2.5 ML NEBU NEB SCH ×4 (03:30→15:30)
[2022-04-29 05:03] VITALS: BP 110/46
--- NOTE | 2022-04-29 07:00 | NUR ---
Slept well during the night. No complain of pain or SOB. IV site on left hand remains intact and patent. Needs attended to and met. Safety measure maintained and call light within reached.
[2022-04-29] MEDS: PROTEIN SUPPLEMENT (PROSTAT) 30 ML LIQUID PO SCH (08:31)
[2022-04-29] MEDS: LISINOPRIL 5 MG TABLET PO SCH (09:00)
[2022-04-29] MEDS: CARVEDILOL 6.25 MG TABLET PO SCH (09:24)
[2022-04-29] MEDS: FERROUS SULFATE 325 MG TABEC PO SCH (09:25)
[2022-04-29] MEDS: FUROSEMIDE 40 MG TABLET PO SCH (09:26)
[2022-04-29] MEDS: PANTOPRAZOLE SODIUM 40 MG TABLET.DR PO SCH (09:26)
[2022-04-29] MEDS ORDERED: ACET325T53 PO (13:59)
[2022-04-29] MEDS ORDERED: FERR325T28 PO (13:59)
[2022-04-29] MEDS: ACETAMINOPHEN 325 MG TABLET PO PRN (15:41)
[2022-04-29] MEDS ORDERED: INFLUENZA VACCINE 2022-2023 0.5 ML DISP.SYRIN IM ONE (16:30)
[2022-04-29 16:36] VITALS: BP 109/51
--- NOTE | 2022-04-29 17:59 | NUR ---
Patient is discharged home. Discharged instructions given to her daughter she verbalized understanding. All personal belongings taken with patient. Patient left unit via wheelchair alert and verbal in no distress, patient escorts by nursing staff.
== END 2022-04-29 18:00 | disposition home or self-care (01) | DRG 248 ==
LOC: ER 16:57 → MEDSURG3 23:55 → MED 04-26 00:40
PROVIDERS: ADMIT Internal Medicine; ATTEND Internal Medicine
PROC: 0DBF8ZX Excision of Right Large Intestine, Via Natural or Artificial Opening Endoscopic, Diagnostic (ICD-10-PCS; principal; 2022-04-21)
PROC: 0DBH8ZX Excision of Cecum, Via Natural or Artificial Opening Endoscopic, Diagnostic (ICD-10-PCS; principal; 2022-04-21)
PROC: 0DBB8ZX Excision of Ileum, Via Natural or Artificial Opening Endoscopic, Diagnostic (ICD-10-PCS; principal; 2022-04-21)
PROC: 0DBG8ZX Excision of Left Large Intestine, Via Natural or Artificial Opening Endoscopic, Diagnostic (ICD-10-PCS; principal; 2022-04-21)
PROC: 0HBCXZX Excision of Left Upper Arm Skin, External Approach, Diagnostic (ICD-10-PCS; 2022-04-25)
PROC: 0BBF3ZX Excision of Right Lower Lung Lobe, Percutaneous Approach, Diagnostic (ICD-10-PCS; 2022-04-28)
DX: A04.9 Bacterial intestinal infection, unspecified (principal); K63.3 Ulcer of intestine; E22.2 Syndrome of inappropriate secretion of antidiuretic hormone; E44.0 Moderate protein-calorie malnutrition; D50.9 Iron deficiency anemia, unspecified; E11.9 Type 2 diabetes mellitus without complications; E66.01 Morbid (severe) obesity due to excess calories; E78.5 Hyperlipidemia, unspecified; G47.33 Obstructive sleep apnea (adult) (pediatric); I10 Essential (primary) hypertension; R50.9 Fever, unspecified; Z20.822 Contact with and (suspected) exposure to COVID-19; J45.909 Unspecified asthma, uncomplicated; K64.8 Other hemorrhoids; Z86.73 Personal history of transient ischemic attack (TIA), and cerebral infarction without residual deficits; Z86.19 Personal history of other infectious and parasitic diseases; R91.8 Other nonspecific abnormal finding of lung field; Z68.41 Body mass index [BMI] 40.0-44.9, adult; Z83.3 Family history of diabetes mellitus; L50.9 Urticaria, unspecified; R21 Rash and other nonspecific skin eruption; R59.0 Localized enlarged lymph nodes; L98.9 Disorder of the skin and subcutaneous tissue, unspecified; K58.9 Irritable bowel syndrome, unspecified
CPT/HCPCS: 36415; 71045; 71250; 71260; 76770; 82378; 82746; 82784; 82785; 83550; 83605; 83615; 83735; 83935; 84100; 84155; 84165; 84300; 84443; 84484; 84550; 84703; 85025; 85610; 85651; 85730; 86038; 86140; 86301; 86334; 86430; 86480; 86592; 87040; 87400; 87806; 88342; 90686; 93005; 94664; A4663; A9150; G0378; J0696; J1200; J1885; J1956; J2250; J2270; J2405; J2930; J3010; J3370; J3490; J3590; J7040; Q9967